=== PATIENT | male | born 1960 | race Caucasian/White ===

== ENCOUNTER → 2019-04-25 | Outpatient (CLI) | payer BC, SELFPAY ==
[2019-04-25 18:02] LABS: Hematocrit 48.5 % (40-54); Hemoglobin 16.9 g/dL (13.0-16.5); Mean Corp Hgb Conc 34.8 g/dL (32-36); Mean Corpuscular Hgb 33.5 pg (27.0-32.0); Mean Corpuscular Volume 96.2 fL (80-94); Mean Platelet Vol. 9.4 fl (6.2-12.0); Platelet Count 238 K/mm3 (150-450); RBC Distribution Width CV 11.9 % (11.6-14.6); RBC Distribution Width SD 42.1 fl (35.1-43.9); Red Blood Count 5.04 M/mm3 (4.6-6.2); White Blood Count 8.3 K/mm3 (4.4-11.0)
[2019-04-25 18:06] LABS: Prothrombin Time (Protime)PT. 13.2 SECONDS (11.7-14.9)
[2019-04-25 18:07] LABS: Partial Thromboplast Time 26.8 Seconds (24.1-36.2)
[2019-04-25 19:25] LABS: AST(SGOT) 50 U/L (15-37); Alanine Aminotransfer ALT/SGPT 45 U/L (16-61); Albumin, Serum 3.3 g/dL (3.2-5.0); Alkaline Phosphatase 90 U/L (45-117); Globulin 5.2 g/dL (2.2-4.2); Protein, Total 8.5 g/dL (6.4-8.2)
[2019-04-26 10:17] LABS: Hepatitis B Surface Antigen Non-Reactive (Nonreactive)
[2019-04-27 15:27] LABS: AFP, Tumor Marker 7.2 ng/mL (0.0-8.3)
== END | disposition home or self-care (01) ==
PROVIDERS: Referring Provider Internal Medicine Gastroenterology; Visit Provider Internal Medicine Gastroenterology
DX: B19.20 Unspecified viral hepatitis C without hepatic coma (principal)
CPT/HCPCS: 36415; 80076; 82105; 85027; 85610; 85730; 87340

== ENCOUNTER → 2019-05-06 10:16 | Outpatient (CLI) | payer BC, SELFPAY ==
--- NOTE | 2019-05-06 10:25 | US_ITS ---
STUDY: ABDOMINAL ULTRASOUND REASON FOR EXAM: Male, 59 years old. Chronic hepatitis C TECHNIQUE: Transabdominal ultrasound was performed with real-time and static vicente scale imaging. TECHNICAL QUALITY: Adequate. COMPARISON: None. FINDINGS: Liver: The liver measures 16.9 cm. There is increased echogenicity of the liver. The bile ducts are within normal limits. There is hepatic color flow. The direction of portal flow is hepatopetal. There is no demonstrated mass lesion. Gallbladder: Normal distended gallbladder. The gallbladder wall measures 2.3 mm. There is a negative sonographic Yanes's sign. There is no pericholecystic fluid. There are no gallstones. Common Bile Duct (C.B.D.): The common bile duct measures 3.4 mm. Pancreas: There is normal echogenicity of the visualized pancreas. There is no demonstrated pancreatic mass or cyst. Spleen: There is borderline splenomegaly. The spleen measures 14.2 x 6.9 x 5.9 cm. Right Kidney: Normal size of the right kidney. The right kidney measures 11.2 x 6.0 x 5.6 cm. Normal renal cortex. The right cortex measures 1.6 cm. There is no demonstrated renal mass or cyst. There is no right hydronephrosis. Left Kidney: Normal size of the left kidney. The left kidney measures 12.7 x 5.1 x 6.0 cm. Normal renal cortex. The left cortex measures 2.0 cm. There is no demonstrated renal mass or cyst. There is no left hydronephrosis. Aorta: Mostly obscured by bowel gas. I.V.C.: The IVC is patent. There is no ascites. US/Abdomen Complete IMPRESSION: 1. No hepatic masses. 2. Increased echogenicity of the liver is nonspecific and can be associated with hepatic steatosis, hepatitis or early cirrhosis. 3. Borderline splenomegaly. 4. Patent portal vein. Electronically Signed: Luis Vizcarra MD ([place]) at 16:01 EST , Service support ,
== END ==
LOC: US 10:17
PROVIDERS: Referring Provider Internal Medicine Gastroenterology; Visit Provider Internal Medicine Gastroenterology
DX: B18.2 Chronic viral hepatitis C (principal)
CPT/HCPCS: 76700